=== PATIENT | male | born 1960 | race Caucasian/White ===

== ENCOUNTER 2016-07-26 07:00 | Day surgery (SDC) | payer MEDICARE, MEDICAID ==
[~2016-07-26] VITALS: Ht 172.7 cm; Wt 81.6 kg
[~2016-07-26 07:00] MED LIST: ACYCLOVIR400 MG PO; ATENOLOL/HCTZ; ATENOLOL50 MG PO; BACTRIM DS 8001 TA1 PO; BACTRIM DS 8001 TAB PO; BACTROBAN2% TP; CEPHALEXIN500 MG PO; CIPRO 500MG TA500 MG PO; CIPROFLOXACIN500 MG PO; DICLOFENAC 50MG50 MG PO; DOXYCYCLINE150 MG PO; FLAGYL500 M1 PO; FLEXERIL10 MG PO; HARVONI1 TAB PO; KEFLEX 500MG.500 MG PO; KEFLEX500 M1 PO; LORTAB 5/500 501 TAB PO; MEDROL 4MG. DOSE4 MG PO; MONODOX100 MG PO; OXYBUTYNIN5 MG PO; OXYCODONE HYDROC5 MG PO; OXYCODONE15 MG PO; OXYCONTIN 10MG10 MG PO; PREDNISONE 10MG10 MG PO; ULTRAM 50 MG TA50 MG PO; XANAX 1MG TABLET1 MG PO; ZANAFLEX4 MG PO; ZOFRAN ODT4 MG PO; [UNRECOGNIZED DRUG - REMARK]
--- NOTE | 2016-07-26 08:32 | Operative Note ---
Endoscopy Report Date: 07/26/16 Preoperative diagnosis: 1. Screening colonoscopy 2. Change in bowel habits 3. History of hepatitis C Procedure Type of procedure: 1. Esophagogastroduodenoscopy with biopsies 2. Total colonoscopy to ileocecal valve with biopsies and polypectomy by snare Indications: 56-year-old white male. Referred from [facility] for colonoscopy. No history of previous colonoscopy. Long-standing history of change in bowel habits with tendency towards diarrhea. He had some abdominal pain and diarrhea several weeks ago and was seen in the emergency department at which time he had a CT scan revealed possible enteritis. His symptoms improved. He was sent for surgical consultation. Plan was made for colonoscopy. Subsequently his forms designer requested proceeding with upper endoscopy as well due to his history of hepatitis C to rule out esophageal varices. Consent was obtained and patient was taken to same-day surgery endoscopy procedure room. He was positioned in a lateral decubitus position. Adequate intravenous sedation was achieved. Attention was first turned to upper endoscopy. Olympus endoscope was inserted via the oropharynx. Esophagus was normal without any varices. Stomach was cannulated and insufflated. Retroflexion revealed no evidence of any significant hiatal hernia. He had some diffuse gastritis with some scattered erosions. Gastric antral mucosal biopsy was obtained for CLOtest for H. pylori. Pylorus was traversed and duodenal bulb and sweep were unremarkable. In the prepyloric location there was some prominent edematous mucosa likely consistent with healing punctate prepyloric ulcer. Biopsies were obtained. Endoscope was withdrawn. Attention was then turned colonoscopy. Variable stiffness Olympus colonoscope was inserted via the anus and advanced to the cecum without difficulty. Appendiceal orifice and ileocecal valve were clearly identified. Colonoscope was advanced briefly short distance into the ileocecal valve which appeared grossly unremarkable. Within the cecum there was an area punctate erythematous mucosa which was biopsied. As the colonoscope was withdrawn through the colon several random biopsies were obtained. In the rectosigmoid region there were a couple of adenomatous-appearing polyps which were removed with hot snare. There was an additional diminutive adenomatous polyp removed with cold biopsy forceps. Retroflexion revealed nonpathologic internal hemorrhoids. Colonoscope was withdrawn. Findings: 1. Gastritis 2. Rectosigmoid polyps Recommendations: Follow-up on histopathology. Likely plan for repeat colonoscopy in 3-5 years at [id number]
[2016-07-26 10:02] VITALS: BP 139/82
== END 2016-07-26 09:03 | disposition home or self-care (01) ==
LOC: SDC 07:00
PROVIDERS: Surgery
PROC: 0DBH8ZX Excision of Cecum, Via Natural or Artificial Opening Endoscopic, Diagnostic (ICD-10-PCS; 2016-07-26)
PROC: 0DB78ZX Excision of Stomach, Pylorus, Via Natural or Artificial Opening Endoscopic, Diagnostic (ICD-10-PCS; 2016-07-26)
PROC: 0DB68ZX Excision of Stomach, Via Natural or Artificial Opening Endoscopic, Diagnostic (ICD-10-PCS; 2016-07-26)
PROC: 0DBN8ZX Excision of Sigmoid Colon, Via Natural or Artificial Opening Endoscopic, Diagnostic (ICD-10-PCS; principal; 2016-07-26 07:30)
DX: R19.4 Change in bowel habit (principal); D12.7 Benign neoplasm of rectosigmoid junction; D12.5 Benign neoplasm of sigmoid colon; K29.70 Gastritis, unspecified, without bleeding; K25.9 Gastric ulcer, unspecified as acute or chronic, without hemorrhage or perforation